=== PATIENT | male | born 2000 | race Caucasian/White ===

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

== ENCOUNTER 2021-04-07 23:21 | Emergency (ER) | payer BC ==
[~2021-04-07] VITALS: Ht 193 cm; Wt 129.3 kg
[~2021-04-07 23:21] MED LIST changes: -MOME45CR19 TP; +MOME45CR3 TP
[2021-04-07 23:38] VITALS: BP 127/104
== END 2021-04-07 23:48 | disposition left against medical advice (07) ==
LOC: EDUNIT# 23:21 → ER 23:22
DX: R06.02 Shortness of breath (principal); J45.909 Unspecified asthma, uncomplicated

== ENCOUNTER 2021-08-18 11:51 | Emergency (ER) | payer SELFPAY ==
[~2021-08-18] VITALS: Ht 190 cm; Wt 109.0 kg
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
[2021-08-18 12:27] LABS: ALBUMIN 4.5 GM/DL (3.2-4.5); CHLORIDE 104 MMOL/L (98-107); POTASSIUM 3.9 MMOL/L (3.6-5.0); SODIUM 138 MMOL/L (135-145)
[2021-08-18 12:28] LABS: CALCIUM 9.7 MG/DL (8.5-10.1)
[2021-08-18 12:30] LABS: GLUCOSE 133 MG/DL (70-105); TOTAL PROTEIN 7.1 GM/DL (6.4-8.2)
[2021-08-18 12:31] LABS: BILIRUBIN,TOTAL 1.1 MG/DL (0.1-1.0); CARBON DIOXIDE 17 MMOL/L (21-32)
[2021-08-18 12:33] LABS: ALKALINE PHOSPHATASE 53 U/L (40-136); CREATININE SERUM 1.22 MG/DL (0.60-1.30); GFR ESTIMATED 75
[2021-08-18 12:34] LABS: BUN/CREATININE RATIO 7
[2021-08-18 12:36] LABS: ALANINE AMINOTRANSFERASE 40 U/L (0-55)
[2021-08-18] MEDS ORDERED: LACTATED RINGERS 1,000 ML IV SCH ×2 (12:45→13:00)
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
[2021-08-18 12:47] LABS: HEMATOCRIT 43 % (40-54); HEMOGLOBIN 14.3 g/dL (13.3-17.7); MEAN CORPUSCULAR HEMOGLOBIN 29 pg (25-34); MEAN CORPUSCULAR HGB CONC 34 g/dL (32-36); MEAN CORPUSCULAR VOLUME 85 fL (80-99); MEAN PLATELET VOLUME 9.8 fL (9.0-12.2); PLATELET COUNT 408 10^3/uL (130-400); WHITE BLOOD COUNT 16.6 10^3/uL (4.3-11.0)
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
[2021-08-18] MEDS ORDERED: HOLD METFORMIN - RECEIVED CONTRAST 20 ML VIAL IV SCH (13:00)
[2021-08-18] MEDS ORDERED: NS 100 ML (IVPB) BAG IV ONE (13:00)
[2021-08-18] MEDS ORDERED: IOHEXOL 350 MG/ML 100 ML (OMNIPAQUE 350) VIAL IV ONE (13:00)
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
[2021-08-18 15:02] LABS: BILIRUBIN,URINE NEGATIVE (NEGATIVE); CLARITY,URINE CLEAR; COLOR,URINE YELLOW; GLUCOSE, URINE (UA) NEGATIVE (NEGATIVE); KETONES,URINE NEGATIVE (NEGATIVE); LEUKOCYTE ESTERASE ,URINE NEGATIVE (NEGATIVE); NITRITE,URINE NEGATIVE (NEGATIVE); PROTEIN,URINE NEGATIVE (NEGATIVE)
[2021-08-18 15:19] LABS: AMORPHOUS SEDIMENT,UR RARE AMOR URATES /LPF; BACTERIA,URINE TRACE /HPF; WBC,URINE RARE /HPF
[2021-08-18 15:23] LABS: AMPHETAMINE SCREEN, URINE NEGATIVE (NEGATIVE); BARBITURATE SCREEN URINE NEGATIVE (NEGATIVE); BENZODIAZEPINES SCREEN URINE NEGATIVE (NEGATIVE); CANNABINOID SCREEN, URINE POSITIVE (NEGATIVE); COCAINE SCREEN URINE NEGATIVE (NEGATIVE); METHADONE STAT NEGATIVE (NEGATIVE); METHAMPHETAMINE SCREEN URINE S NEGATIVE (NEGATIVE); OPIATE SCREEN URINE NEGATIVE (NEGATIVE); OXYCODONE STAT NEGATIVE (NEGATIVE); TRICYCLIC ANTIDEPRESSANTS SCRE NEGATIVE (NEGATIVE)
[2021-08-18 15:24] LABS: PROPOXYPHENE STAT NEGATIVE (NEGATIVE)
[2021-08-18 15:29] VITALS: BP 100/62
== END 2021-08-18 15:35 | disposition home or self-care (01) ==
LOC: EDUNIT# 11:51 → ER 11:53
DX: S06.0X0A Concussion without loss of consciousness, initial encounter (principal); S05.11XA Contusion of eyeball and orbital tissues, right eye, initial encounter; M62.82 Rhabdomyolysis; J45.909 Unspecified asthma, uncomplicated; R00.0 Tachycardia, unspecified; R40.2410 Glasgow coma scale score 13-15, unspecified time; V89.2XXA Person injured in unspecified motor-vehicle accident, traffic, initial encounter
CPT/HCPCS: 70450; 70486; 71046; 72125; 72128; 72131; 74177; 80053; 80306; 81000; 82550; 85027; 99284; G0480; 36415; 80320